=== PATIENT | male | born 1945 | race Caucasian/White ===

== ENCOUNTER 2017-12-10 06:33 | Emergency (ER) | payer SELFPAY ==
[~2017-12-10] VITALS: Ht 177.8 cm; Wt 73.0 kg
[2017-12-10] MEDS ORDERED: DIPHENHYDRAMINE 25MG CAPSULE PO ONE (08:45)
[2017-12-10 10:54] VITALS: BP 132/78
== END 2017-12-10 10:56 | disposition home or self-care (01) ==
LOC: ER 06:35
DX: R21 Rash and other nonspecific skin eruption (principal); E11.9 Type 2 diabetes mellitus without complications; I11.0 Hypertensive heart disease with heart failure; Z59.0 Homelessness
CPT/HCPCS: 99283; Q0163

== ENCOUNTER 2017-12-10 14:07 | Inpatient (IN) | payer MEDICARE ==
[~2017-12-10] VITALS: Ht 167.6 cm; Wt 64.9 kg
[2017-12-10] MEDS ORDERED: KETOROLAC 15MG/ML VIAL IV ONE (23:00)
[2017-12-10] MEDS ORDERED: DIPHENHYDRAMINE 25MG CAPSULE PO ONE (23:00)
[2017-12-10] MEDS ORDERED: VANCOMYCIN 1,500 MG in DEXT 5% WATER 250 ML IV SCH (23:00)
[2017-12-10 23:35] LABS: BASOPHILS % 0.4 % (0.0-2.0); EOSINOPHILS % 0.1 % (0.0-5.0); HEMATOCRIT. 32.7 % (42.0-52.0); MEAN CORPUSCULAR HEMOGLOBIN 32.3 pg (28.0-32.0); MEAN CORPUSCULAR VOLUME 95.8 fL (80.0-94.0); MEAN PLATELET VOLUME 8.4 fl (7.4-10.4); MONOCYTES % 9.5 % (2.0-8.0); PLATELET 292 x1000/uL (130-400); RED BLOOD CELL COUNT 3.41 mill/uL (4.7-6.1); RED CELL DISTRIBUTION WIDTH 14.1 % (11.6-14.6)
[2017-12-10 23:41] LABS: CHLORIDE 102 mEq/L (98-107)
[2017-12-11] MEDS ORDERED: VANCOMYCIN 1 G PREMIX 200 ML IV SCH ×2 (00:30→23:00)
[2017-12-11] MEDS ORDERED: SODIUM CHLORIDE 0.9% 1000ML BAG (SEPSIS BOLUS) IV ONE (00:30)
[2017-12-11 09:30] VITALS: BP 132/71
[2017-12-11] MEDS ORDERED: NA PHOS,M-B/NA PHOS,DI-BA ENEMA 118ML PR PRN (11:15)
[2017-12-11] MEDS ORDERED: DOCUSATE SODIUM 100MG CAPSULE PO PRN (11:15)
[2017-12-11] MEDS ORDERED: ACETAMINOPHEN 325MG TABLET PO PRN (11:15)
[2017-12-11] MEDS ORDERED: LORAZEPAM 0.5MG TABLET PO PRN (11:15)
[2017-12-11] MEDS ORDERED: ONDANSETRON HCL 4MG/2ML VIAL IV PRN (11:15)
[2017-12-11] MEDS ORDERED: CLONIDINE 0.1MG TABLET PO PRN (11:15)
[2017-12-11] MEDS ORDERED: ACETAMINOPHEN 650MG SUPP PR PRN (11:15)
[2017-12-11] MEDS ORDERED: MAGNESIUM/ALUMINUM HYDROXIDE/SIMETHICONE 30ML UDC PO PRN (11:15)
[2017-12-11] MEDS ORDERED: HYDROCODONE/ACETAMINOPHEN 10/325MG TABLET PO PRN (11:15)
[2017-12-11] MEDS ORDERED: HYDROCODONE/ACETAMINOPHEN 5/325MG TABLET PO PRN (11:15)
[2017-12-11] MEDS ORDERED: GUAIFENESIN 200MG/10ML SUGAR FREE UDC PO PRN (11:15)
[2017-12-11] MEDS ORDERED: POTASSIUM CHLORIDE 20MEQ/PACKET PO NR (11:30)
[2017-12-11 11:34] VITALS: BP 132/77
[2017-12-11 12:00] VITALS: BP 115/67
[2017-12-11] MEDS: CHLORDIAZEPOXIDE 25MG CAPSULE PO SCH ×2 (12:58→21:27)
[2017-12-11] MEDS ORDERED: FOLIC ACID 1 MG, THIAMINE HCL 100 MG, MVI, ADULT NO.1 10 ML in DEXTROSE 5% WATER 1,000 ML IV ONE ×4 (13:00)
[2017-12-11] MEDS: DIPHENHYDRAMINE 50MG/ML VIAL IV PRN ×2 (15:54→21:27)
[2017-12-11] MEDS: ACETAMINOPHEN 650MG/20.3ML UDC GT PRN (15:54)
[2017-12-11 16:00] VITALS: BP 119/77
[2017-12-11] MEDS: LISINOPRIL 2.5MG TABLET PO SCH (18:13)
[2017-12-11] MEDS: TERBINAFINE HCL 1% CREAM 30GM TOP SCH (18:14)
[2017-12-11 20:23] VITALS: BP 135/82
[2017-12-11 22:55] LABS: *AMPHETAMINES SCREEN URINE NEGATIVE (NEGATIVE); *BARBITURATES SCREEN URINE NEGATIVE (NEGATIVE); *BENZODIAZEPINES SCREEN URINE NEGATIVE (NEGATIVE); *COCAINE SCREEN URINE NEGATIVE (NEGATIVE); METHADONE URINE SCREEN NEGATIVE (NEGATIVE); OPIATES URINE SCREEN NEGATIVE (NEGATIVE); PHENCYCLIDINE URINE SCREEN NEGATIVE (NEGATIVE)
[2017-12-11 22:56] LABS: CANNABINOID URINE SCREEN PRESUMTIVE POSITIVE (NEGATIVE)
[2017-12-12 00:49] VITALS: BP 144/61
[2017-12-12 05:08] VITALS: BP 156/93
[2017-12-12] MEDS: ACETAMINOPHEN 650MG/20.3ML UDC GT PRN ×2 (05:14→20:25)
[2017-12-12] MEDS: CHLORDIAZEPOXIDE 25MG CAPSULE PO SCH ×3 (05:14→21:01)
[2017-12-12 07:04] LABS: HEMATOCRIT. 30.9 % (42.0-52.0); HEMOGLOBIN. 10.5 g/dL (14.0-18.0); MEAN CORPUSCULAR HEMOGLOBIN 32.9 pg (28.0-32.0); MEAN PLATELET VOLUME 8.7 fl (7.4-10.4); PLATELET 255 x1000/uL (130-400); RED BLOOD CELL COUNT 3.19 mill/uL (4.7-6.1); RED CELL DISTRIBUTION WIDTH 14.4 % (11.6-14.6)
[2017-12-12 07:44] LABS: CHLORIDE 104 mEq/L (98-107)
[2017-12-12 07:54] LABS: PHOSPHORUS 2.3 mg/dL (2.5-4.9)
[2017-12-12 07:55] LABS: LDL CHOLESTEROL 25 mg/dL (5-100)
[2017-12-12 07:57] LABS: HDL CHOLESTEROL 53 mg/dL (40-59)
[2017-12-12 07:58] LABS: AMMONIA 39 uMol/L (<32)
[2017-12-12 08:00] VITALS: BP 132/83
[2017-12-12 08:22] LABS: FOLIC ACID (FOLATE) SERUM 10.1 ng/mL (>5.38)
[2017-12-12] MEDS: LISINOPRIL 2.5MG TABLET PO SCH (10:37)
[2017-12-12] MEDS: TERBINAFINE HCL 1% CREAM 30GM TOP SCH (10:37)
[2017-12-12] MEDS ORDERED: FOLIC ACID 1 MG, THIAMINE HCL 100 MG, MVI, ADULT NO.1 10 ML in DEXTROSE 5% WATER 1,000 ML IV SCH ×8 (11:15→14:00)
[2017-12-12] MEDS ORDERED: POTASSIUM CHLORIDE 20MEQ/PACKET PO ONE (11:15)
[2017-12-12] MEDS ORDERED: SULFAMETHOXAZOLE/TRIMETHOPRIM 800/160MG TABLET PO SCH (12:15)
[2017-12-12] MEDS ORDERED: AMOXICILLIN/POTASSIUM CLAVULANATE 875/125MG TAB PO SCH (12:15)
[2017-12-12] MEDS ORDERED: POTASSIUM PHOS,M-BASIC-D-BASIC 20 MMOL in DEXT 5% WATER 243.3333 ML IV SCH (14:00)
[2017-12-12 16:33] LABS: PLATELET ESTIMATE NORMAL
[2017-12-12] MEDS ORDERED: VANCOMYCIN 1250MG in DEXTROSE 5% WATER 250ML IV NR (19:00)
[2017-12-12] MEDS: DIPHENHYDRAMINE 50MG/ML VIAL IV PRN (19:34)
[2017-12-12] MEDS: MORPHINE SULFATE 4 MG/ML CPJ (NOT FOR IM USE) IV PRN (19:47)
[2017-12-12 20:00] VITALS: BP 140/78
[2017-12-12] MEDS: LORAZEPAM 2MG/ML CPJ IV PRN (20:25)
[2017-12-12] MEDS ORDERED: VANCOMYCIN 1,250 MG in DEXT 5% WATER 250 ML IV NR (21:00)
[2017-12-13] VITALS: BP 118/76
[2017-12-13 04:00] VITALS: BP 116/74
[2017-12-13] MEDS: CHLORDIAZEPOXIDE 25MG CAPSULE PO SCH ×3 (06:23→22:01)
[2017-12-13 07:50] LABS: BASOPHILS % 0.5 % (0.0-2.0); EOSINOPHILS % 1.2 % (0.0-5.0); HEMATOCRIT. 35.7 % (42.0-52.0); HEMOGLOBIN. 11.6 g/dL (14.0-18.0); LYMPHOCYTES % 8.6 % (20.0-50.0); MEAN CORPUSCULAR HEMOGLOBIN 31.9 pg (28.0-32.0); MEAN CORPUSCULAR VOLUME 98.4 fL (80.0-94.0); MEAN PLATELET VOLUME 9.2 fl (7.4-10.4); MONOCYTES % 11.3 % (2.0-8.0); NEUTROPHILS % 78.4 % (40.0-76.0); PLATELET 273 x1000/uL (130-400); RED BLOOD CELL COUNT 3.63 mill/uL (4.7-6.1); RED CELL DISTRIBUTION WIDTH 14.6 % (11.6-14.6)
[2017-12-13 08:00] VITALS: BP 126/85
[2017-12-13 08:14] LABS: CHLORIDE 101 mEq/L (98-107)
[2017-12-13 08:16] LABS: AMMONIA 30 uMol/L (<32)
[2017-12-13 08:28] LABS: PHOSPHORUS 2.6 mg/dL (2.5-4.9)
[2017-12-13] MEDS: TERBINAFINE HCL 1% CREAM 30GM TOP SCH (09:00)
[2017-12-13] MEDS: POTASSIUM CHLORIDE 20MEQ/PACKET PO SCH (10:11)
[2017-12-13] MEDS: LISINOPRIL 5MG TABLET PO SCH (10:11)
[2017-12-13] MEDS: DIPHENHYDRAMINE 50MG/ML VIAL IV PRN ×2 (10:11→19:40)
[2017-12-13] MEDS: VANCOMYCIN 1 G PREMIX 200 ML IV SCH ×2 (10:11→20:50)
[2017-12-13] MEDS: LORAZEPAM 2MG/ML CPJ IV PRN ×2 (10:12→19:57)
[2017-12-13] MEDS: PIPERACILLIN/TAZ 3.375G PREMIX 50 ML IV SCH ×2 (11:27→19:39)
[2017-12-13 12:00] VITALS: BP 147/100
[2017-12-13 14:21] LABS: FOLATE HEMOLYSATE 364.8 ng/mL (Not Estab.); FOLATE RBC 1177 ng/mL (>498)
[2017-12-13 16:00] VITALS: BP 133/90
[2017-12-13] MEDS ORDERED: FOLIC ACID 1 MG, THIAMINE HCL 100 MG, MVI, ADULT NO.1 10 ML in DEXTROSE 5% WATER 1,000 ML IV ONE ×4 (17:30)
[2017-12-13 20:00] VITALS: BP 142/64
[2017-12-14] VITALS: BP 129/91
[2017-12-14] MEDS: PIPERACILLIN/TAZ 3.375G PREMIX 50 ML IV SCH ×3 (02:11→18:10)
[2017-12-14] MEDS: LORAZEPAM 2MG/ML CPJ IV PRN (02:30)
[2017-12-14 04:00] VITALS: BP 126/66
[2017-12-14] MEDS: CHLORDIAZEPOXIDE 25MG CAPSULE PO SCH ×3 (05:23→22:13)
[2017-12-14 06:15] LABS: BASOPHILS % 0.5 % (0.0-2.0); EOSINOPHILS % 2.9 % (0.0-5.0); HEMATOCRIT. 33.3 % (42.0-52.0); LYMPHOCYTES % 13.3 % (20.0-50.0); MEAN CORPUSCULAR VOLUME 96.8 fL (80.0-94.0); MEAN PLATELET VOLUME 9.1 fl (7.4-10.4); MONOCYTES % 14.7 % (2.0-8.0); NEUTROPHILS % 68.6 % (40.0-76.0); PLATELET 282 x1000/uL (130-400); RED BLOOD CELL COUNT 3.44 mill/uL (4.7-6.1); RED CELL DISTRIBUTION WIDTH 14.4 % (11.6-14.6)
[2017-12-14 07:58] LABS: CHLORIDE 100 mEq/L (98-107)
[2017-12-14 08:00] VITALS: BP 130/84
[2017-12-14 08:39] LABS: AMMONIA 98 uMol/L (<32)
[2017-12-14] MEDS: VANCOMYCIN 1 G PREMIX 200 ML IV SCH ×5 (09:21→22:13)
[2017-12-14] MEDS: LISINOPRIL 5MG TABLET PO SCH (09:21)
[2017-12-14] MEDS: POTASSIUM CHLORIDE 20MEQ/PACKET PO SCH (09:21)
[2017-12-14] MEDS: TERBINAFINE HCL 1% CREAM 30GM TOP SCH (09:22)
[2017-12-14 12:00] VITALS: BP 126/82
[2017-12-14 16:00] VITALS: BP 120/86
[2017-12-14] MEDS ORDERED: FOLIC ACID 1 MG, THIAMINE HCL 100 MG, MVI, ADULT NO.1 10 ML in DEXTROSE 5% WATER 1,000 ML IV ONE ×8 (17:00→20:00)
[2017-12-14 19:49] VITALS: BP 122/86
[2017-12-15 00:34] VITALS: BP 99/69
[2017-12-15] MEDS: PIPERACILLIN/TAZ 3.375G PREMIX 50 ML IV SCH ×3 (03:11→23:38)
[2017-12-15 05:11] VITALS: BP 128/80
[2017-12-15] MEDS: VANCOMYCIN 1 G PREMIX 200 ML IV SCH ×3 (05:11→21:37)
[2017-12-15] MEDS: CHLORDIAZEPOXIDE 25MG CAPSULE PO SCH ×3 (05:17→21:37)
[2017-12-15 05:37] LABS: AMMONIA 39 uMol/L (<32)
[2017-12-15 06:00] LABS: BASOPHILS % 0.5 % (0.0-2.0); EOSINOPHILS % 3.1 % (0.0-5.0); HEMOGLOBIN. 11.6 g/dL (14.0-18.0); LYMPHOCYTES % 16.9 % (20.0-50.0); MEAN CORPUSCULAR HEMOGLOBIN 31.4 pg (28.0-32.0); MEAN CORPUSCULAR VOLUME 97.1 fL (80.0-94.0); MEAN PLATELET VOLUME 9.4 fl (7.4-10.4); MONOCYTES % 13.8 % (2.0-8.0); NEUTROPHILS % 65.7 % (40.0-76.0); PLATELET 358 x1000/uL (130-400); RED BLOOD CELL COUNT 3.71 mill/uL (4.7-6.1); RED CELL DISTRIBUTION WIDTH 14.5 % (11.6-14.6)
[2017-12-15 06:13] LABS: CHLORIDE 101 mEq/L (98-107)
[2017-12-15 06:20] LABS: VANCOMYCIN TROUGH 17.9 ug/mL (5.0-10.0)
[2017-12-15 08:04] VITALS: BP 120/69
[2017-12-15] MEDS: LISINOPRIL 5MG TABLET PO SCH ×2 (10:14→10:28)
[2017-12-15] MEDS: POTASSIUM CHLORIDE 20MEQ/PACKET PO SCH (10:14)
[2017-12-15] MEDS: TERBINAFINE HCL 1% CREAM 30GM TOP SCH (10:14)
[2017-12-15 12:18] VITALS: BP 126/89
[2017-12-15 16:08] VITALS: BP 108/75
[2017-12-15] MEDS: LACTULOSE 20G/30ML UDC PO SCH (18:40)
[2017-12-15] MEDS: FOLIC ACID 1 MG, THIAMINE HCL 100 MG, MVI, ADULT NO.1 10 ML in DEXTROSE 5% WATER 1,000 ML IV SCH ×4 (18:40)
[2017-12-15 20:45] VITALS: BP 113/74
[2017-12-15] MEDS: CALAMINE LOTION 120ML TOP SCH (21:00)
[2017-12-16 00:33] VITALS: BP 109/68
[2017-12-16 04:00] VITALS: BP 121/75
[2017-12-16] MEDS: PIPERACILLIN/TAZ 3.375G PREMIX 50 ML IV SCH ×3 (05:06→21:06)
[2017-12-16] MEDS: VANCOMYCIN 1 G PREMIX 200 ML IV SCH ×3 (05:49→22:01)
[2017-12-16] MEDS: CHLORDIAZEPOXIDE 25MG CAPSULE PO SCH ×3 (05:50→21:06)
[2017-12-16] MEDS: LACTULOSE 20G/30ML UDC PO SCH ×2 (05:50→21:06)
[2017-12-16 06:19] LABS: BASOPHILS % 0.9 % (0.0-2.0); EOSINOPHILS % 10.7 % (0.0-5.0); HEMATOCRIT. 35.4 % (42.0-52.0); HEMOGLOBIN. 11.4 g/dL (14.0-18.0); LYMPHOCYTES % 16.4 % (20.0-50.0); MEAN CORPUSCULAR HEMOGLOBIN 31.1 pg (28.0-32.0); MEAN CORPUSCULAR VOLUME 96.4 fL (80.0-94.0); MEAN PLATELET VOLUME 9.3 fl (7.4-10.4); MONOCYTES % 13.6 % (2.0-8.0); NEUTROPHILS % 58.4 % (40.0-76.0); PLATELET 390 x1000/uL (130-400); RED BLOOD CELL COUNT 3.67 mill/uL (4.7-6.1); RED CELL DISTRIBUTION WIDTH 14.7 % (11.6-14.6)
[2017-12-16 07:51] VITALS: BP 104/62
[2017-12-16 07:56] LABS: CHLORIDE 103 mEq/L (98-107)
[2017-12-16 08:37] LABS: AMMONIA 72 uMol/L (<32)
[2017-12-16] MEDS: POTASSIUM CHLORIDE 20MEQ/PACKET PO SCH (08:49)
[2017-12-16] MEDS: CALAMINE LOTION 120ML TOP SCH ×2 (08:49→21:00)
[2017-12-16] MEDS: TERBINAFINE HCL 1% CREAM 30GM TOP SCH (08:49)
[2017-12-16] MEDS: MORPHINE SULFATE 4 MG/ML CPJ (NOT FOR IM USE) IV PRN (08:50)
[2017-12-16 12:54] VITALS: BP 125/65
[2017-12-16] MEDS: FOLIC ACID 1 MG, THIAMINE HCL 100 MG, MVI, ADULT NO.1 10 ML in DEXTROSE 5% WATER 1,000 ML IV SCH ×4 (14:10)
[2017-12-16] MEDS ORDERED: POTASSIUM CHLORIDE 20MEQ TABLET SR PO NR (14:43)
[2017-12-16 15:59] VITALS: BP 143/92
[2017-12-16 20:23] VITALS: BP 127/86
[2017-12-17 00:29] VITALS: BP 122/80
[2017-12-17 04:00] VITALS: BP 121/79
[2017-12-17] MEDS: PIPERACILLIN/TAZ 3.375G PREMIX 50 ML IV SCH (06:00)
[2017-12-17] MEDS: VANCOMYCIN 1 G PREMIX 200 ML IV SCH (06:00)
[2017-12-17] MEDS: CHLORDIAZEPOXIDE 25MG CAPSULE PO SCH (06:00)
[2017-12-17] MEDS: LACTULOSE 20G/30ML UDC PO SCH (06:00)
[2017-12-17 06:56] LABS: HEMATOCRIT. 34.7 % (42.0-52.0); HEMOGLOBIN. 11.3 g/dL (14.0-18.0); MEAN CORPUSCULAR HEMOGLOBIN 31.5 pg (28.0-32.0); MEAN CORPUSCULAR VOLUME 96.3 fL (80.0-94.0); MEAN PLATELET VOLUME 9.4 fl (7.4-10.4); PLATELET 424 x1000/uL (130-400); RED CELL DISTRIBUTION WIDTH 14.5 % (11.6-14.6)
[2017-12-17 07:15] LABS: CHLORIDE 108 mEq/L (98-107)
[2017-12-17 08:00] VITALS: BP 121/89
[2017-12-17 12:00] VITALS: BP 115/74
[2017-12-17 12:59] LABS: PLATELET ESTIMATE SLIGHTLY INCREASED
[2017-12-17] MEDS ORDERED: SULF1TAB48 PO (13:45)
[2017-12-17] MEDS ORDERED: AMOX-424 PO (13:46)
[2017-12-17] MEDS ORDERED: SULFAMETHOXAZOLE/TRIMETHOPRIM 800/160MG TABLET PO SCH (15:00)
[2017-12-17] MEDS ORDERED: AMOXICILLIN/POTASSIUM CLAVULANATE 875/125MG TAB PO SCH (15:00)
== END 2017-12-17 15:10 | DRG 871 ==
LOC: ER 16:04 → 6WST 12-11 00:24 → ENRESERV 12-11 07:48 → 6WST 12-11 08:58
PROVIDERS: ADMIT Internal Medicine; ATTEND Internal Medicine
DX: A41.9 Sepsis, unspecified organism (principal); G93.41 Metabolic encephalopathy; L03.115 Cellulitis of right lower limb; D53.9 Nutritional anemia, unspecified; F10.239 Alcohol dependence with withdrawal, unspecified; L03.116 Cellulitis of left lower limb; I10 Essential (primary) hypertension; F41.9 Anxiety disorder, unspecified; F17.210 Nicotine dependence, cigarettes, uncomplicated; Z59.0 Homelessness; Z91.19 Patient's noncompliance with other medical treatment and regimen; Z71.6 Tobacco abuse counseling
CPT/HCPCS: 36415; 70450; 71045; 80048; 80053; 80061; 80076; 80202; 80305; 82140; 82607; 82746; 82747; 83036; 83605; 83735; 83880; 84100; 85014; 85025; 85044; 87040; 87086; 93306; 96365; 96375; 99285; J1200; J1885; J2060; J2270; J2543; J3370; J3411; J3490; J7030; J7040; J7050; J7060; J7070; Q0163

== ENCOUNTER 2018-01-12 17:44 | Emergency (ER) | payer MEDICARE ==
[~2018-01-12] VITALS: Ht 170.2 cm; Wt 70.0 kg
[~2018-01-12 17:44] MED LIST: AMOX-424 PO; SULF1TAB48 PO
[2018-01-12] MEDS ORDERED: ZIPRASIDONE MESYLATE 20MG/VIAL IM ONE (19:15)
[2018-01-12 20:05] LABS: BASOPHILS % 0.8 % (0.0-2.0); EOSINOPHILS % 2.6 % (0.0-5.0); HEMATOCRIT. 38.1 % (42.0-52.0); HEMOGLOBIN. 12.6 g/dL (14.0-18.0); LYMPHOCYTES % 42.6 % (20.0-50.0); MEAN CORPUSCULAR HEMOGLOBIN 29.4 pg (28.0-32.0); MEAN CORPUSCULAR VOLUME 88.9 fL (80.0-94.0); MEAN PLATELET VOLUME 8.3 fl (7.4-10.4); MONOCYTES % 10.8 % (2.0-8.0); NEUTROPHILS % 43.2 % (40.0-76.0); PLATELET 339 x1000/uL (130-400); RED BLOOD CELL COUNT 4.28 mill/uL (4.7-6.1); RED CELL DISTRIBUTION WIDTH 15.6 % (11.6-14.6)
[2018-01-12 20:10] LABS: CHLORIDE 107 mEq/L (98-107)
[2018-01-12 20:14] LABS: ETHANOL BLOOD < 10 mg/dL
[2018-01-12 23:08] LABS: *COCAINE SCREEN URINE NEGATIVE (NEGATIVE); METHADONE URINE SCREEN NEGATIVE (NEGATIVE); OPIATES URINE SCREEN NEGATIVE (NEGATIVE)
[2018-01-12 23:09] LABS: *AMPHETAMINES SCREEN URINE NEGATIVE (NEGATIVE); *BARBITURATES SCREEN URINE NEGATIVE (NEGATIVE); *BENZODIAZEPINES SCREEN URINE PRESUMTIVE POSITIVE (NEGATIVE); CANNABINOID URINE SCREEN NEGATIVE (NEGATIVE); PHENCYCLIDINE URINE SCREEN NEGATIVE (NEGATIVE)
[2018-01-13] MEDS ORDERED: LORAZEPAM 2MG/ML CPJ IM ONE (09:45)
[2018-01-13] MEDS ORDERED: ZIPRASIDONE MESYLATE 20MG/VIAL IM ONE (10:15)
[2018-01-13 11:41] VITALS: BP 130/81
== END 2018-01-13 14:32 | disposition home or self-care (01) ==
LOC: ER 17:49
DX: F91.9 Conduct disorder, unspecified (principal); E11.9 Type 2 diabetes mellitus without complications; F41.9 Anxiety disorder, unspecified; J44.9 Chronic obstructive pulmonary disease, unspecified; Z78.1 Physical restraint status
CPT/HCPCS: 36415; 80048; 80305; 80307; 80329; 85025; 96372; 99284; G0482; J2060; J3486